=== PATIENT | female | born 1980 | race Caucasian/White ===

== ENCOUNTER 2016-07-15 20:00 | Emergency (ER) | payer OTHER ==
[2016-07-15 21:02] VITALS: BP 114/76; PULSE 74; TEMP 97.8; BMI 29.8
[2016-07-15 21:05] LABS: BASOPHIL 0.7 % (0-2.0); EOSINOPHIL 2.1 % (0-4.5); MCHC 34.7 g/dl (32.0-36.0); MEAN CELL VOLUME 83.6 fl (80-96); NEUTROPHILS 63.6 % (42.8-82.8); PLATELET COUNT 263 K/MM3 (134-434); RDW 13.4 % (11.6-15.6); WHITE BLOOD COUNT 5.4 K/mm3 (4.0-10.0)
--- NOTE | 2016-07-15 21:11 | PDOC ---
[id number] 96 07/15/16 20:55 07/15/16 20:55 07/15/16 20:55 07/15/16 20:55 07/15/16 20:55 ED Treatment Course - LABORATORY CBC & Chemistry Diagram: 07/15/16 20:45 07/15/16 20:45 - ADDITIONAL ORDERS Additional order review: 07/15/16 20:45 RBC 5.03 MCV 83.6 MCHC 34.7 RDW 13.4 D MPV 8.0 Neutrophils % 63.6 Lymphocytes % 26.4 D Monocytes % 7.2 Eosinophils % 2.1 D Basophils % 0.7 Medical Decision Making - Medical Decision Making 07/15/16 21:11 Pt seen by the Advanced Practice Provider under my direct supervision Ancillary studies reviewed I agree with plan as outlined by the Advanced Practice Provider JANAK Caldera *DC/Admit/Observation/Transfer Diagnosis at time of Disposition: Eloped - Discharge Dispostion Disposition: AGAINST MEDICAL ADVICE
[2016-07-15 21:18] LABS: URINE APPEARANCE CLEAR; URINE BILIRUBIN NEGATIVE (NEGATIVE); URINE BLOOD NEGATIVE (NEGATIVE); URINE COLOR YELLOW; URINE GLUCOSE (UA) NEGATIVE (NEGATIVE); URINE KETONE TRACE (NEGATIVE); URINE LEUK ESTERASE 1+ (NEGATIVE); URINE NITRITE NEGATIVE (NEGATIVE); URINE PROTEIN NEGATIVE (NEGATIVE); URINE UROBILINOGEN NEGATIVE E.U./dl (0.2-1.0)
[2016-07-15 21:23] LABS: URINE MUCUS RARE; URINE RBC 2 /hpf (0-3); URINE WBC 3 /hpf (3-5)
--- NOTE | 2016-07-15 21:23 | PDOC ---
History of Present Illness - General Chief Complaint: Pain, Acute Stated Complaint: PAIN Time Seen by Provider: 07/15/16 20:08 - History of Present Illness Initial Comments: 07/15/16 21:05 CHIEF COMPLAINT: abdominal pain, vomiting HISTORY OF PRESENT ILLNESS: 35 yo F with hx of hypoglycemia, s/p cholecystectomy , x 2 (2002, 2007), gastric bypass 2011, [facility] 2013, presents to ED with sudden onset abdominal pain and vomiting that began 30 minutes prior to arrival. Patient reports that she was "fine, at home doing homework with my kids, and then I made scrambled eggs and 2 minutes after I ate them I threw up 3 times and doubled over with abdominal pain. She denies any fever but does report having chills. Last BM was this morning, last LMP was 3 weeks ago. No recent travel or sick contacts. PAST MEDICAL HISTORY: as per HPI FAMILY HISTORY: Denies SOCIAL HISTORY: Denies tobacco, alcohol, illicit drug use. SURGICAL HISTORY: as per HPI ALLERGIES: codeine, oxycodone, PCN, morphine REVIEW OF SYSTEMS General/Constitutional: Denies fever or chills. Denies weakness, weight change. HEENT: Denies change in vision. Denies ear pain or discharge. Denies sore throat. Cardiovascular: Denies chest pain or shortness of breath. Respiratory: Denies cough, wheezing, or hemoptysis. Gastrointestinal: Abdominal pain and vomiting since this evening. diarrhea or constipation. Denies rectal bleeding. Genitourinary: Denies dysuria, frequency, or change in urination. Musculoskeletal: Denies joint or muscle swelling or pain. Denies neck or back pain. Skin and breasts: Denies rash or easy bruising. PHYSICAL EXAM General Appearance: Well-appearing, appropriately dressed. No apparent distress , no intoxication. HEENT: EOMI, PERRLA, normal ENT inspection, normal voice, TMs normal, pharynx normal. No conjunctival pallor. No photophobia, scleral icterus. Neck: Supple. Trachea midline. No tenderness, rigidity, carotid bruit, stridor , lymphadenopathy, or thyromegaly. Respiratory/Chest: Lungs CTAB. No shortness of breath, chest tenderness, respiratory distress, accessory muscle use. No crackles, rales, rhonchi, stridor , wheezing, dullness Cardiovascular: RRR. S1, S2. Gastrointestinal/Abdominal: Marked tenderness to epigastrum/RLQ. Positive McBurney's sign. Normal bowel sounds. Abdomen soft, non-distended. No tenderness or rebound tenderness. No organomegaly, pulsatile mass, guarding, hernia, hepatomegaly, splenomegaly. Lymphatic: No adenopathy, tenderness. Musculoskeletal/Extremities: Normal inspection. FROM of all extremities, normal capillary refill. Pelvis Stable. No CVA tenderness. No tenderness to extremities, pedal edema, swelling, erythema or deformity. Integumentary: Appropriate color, dry, warm. 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 Fully oriented, alert. Appropriate mood/affect. Motor strength 5/5. No appreciable EOM palsy, facial droop or sensory deficit. 07/15/16 21:43 Past History - Past Medical History Allergies/Adverse Reactions: Allergies Allergy/AdvReac Type Severity Reaction Status Date / Time codeine [Codeine] Allergy Verified 09/26/15 07:09 oxycodone HCl [From Percocet] Allergy Verified 09/26/15 07:09 Penicillins Allergy Verified 09/26/15 07:09 morphine AdvReac Itching Verified 09/26/15 07:09 Home Medications: Ambulatory Orders Ascorbic Acid [Vitamin C] 500 mg PO DAILY 03/03/13 Biotin 10,000 mcg PO DAILY 03/03/13 Calcium 1,000 mg PO DAILY 03/03/13 Cyanocobalamin [Vitamin B12 -] 1,000 mcg PO DAILY 03/03/13 Ferrous Sulfate [Feosol] 650 mg PO DAILY 03/03/13 Multivitamin with Minerals [Multiple Vitamin] 1 each PO DAILY 03/03/13 Thiamine HCl [Vitamin B-1] 500 mg PO DAILY 03/03/13 Vitamin A 8,000 unit PO DAILY 07/13/13 Cholecalciferol (Vitamin D3) [Vitamin D] 50,000 units PO WEEKLY 07/08/15 Tramadol HCl [Conzip] 100 mg PO PRN 07/08/15 Pantoprazole Sodium [Protonix] 40 mg PO DAILY #7 tablet. 08/24/15 Ranitidine HCl [Zantac] 150 mg PO ASDIR 09/05/15 Levofloxacin [Levaquin] 500 mg PO DAILY 09/25/15 Ondansetron HCl [Zofran] 8 mg PO DAILY 09/25/15 Anemia: Yes Asthma: No Cancer: No Cardiac Disorders: No CVA: No COPD: No CHF: No Dementia: No Diabetes: No GI Disorders: No Disorders: Yes (kidney stones) HTN: No Hypercholesterolemia: No Liver Disease: No Seizures: No Thyroid Disease: No - Surgical History Abdominal Surgery: Yes (gastric bypass 07/2011) Appendectomy: No Cardiac Surgery: No Cholecystectomy: Yes Lung Surgery: No Neurologic Surgery: No Orthopedic Surgery: No - Psycho/Social/Smoking Cessation Hx Suicidal Ideation: No Smoking Status: No Smoking History: Unknown if ever smoked Number of Cigarettes Smoked Daily: 0 Information on smoking cessation initiated: No Hx Alcohol Use: No Drug/Substance Use Hx: No Substance Use Type: None Hx Substance Use Treatment: No *Physical Exam - Vital Signs Last Vital Signs Temp Pulse Resp BP Pulse Ox 97.8 F 74 17 114/76 96 07/15/16 20:55 07/15/16 20:55 07/15/16 20:55 07/15/16 20:55 07/15/16 20:55 ED Treatment Course - LABORATORY CBC & Chemistry Diagram: 07/15/16 20:45 07/15/16 20:45 - RADIOLOGY Radiology Studies Ordered: Category Date Time Status ABDOMEN & PELVIS CT WITH CONTR [CT] Stat CT Scan 07/15/16 20:16 Ordered Medical Decision Making - Medical Decision Making 07/15/16 21:48 35 yo F with hx of hypoglycemia, s/p cholecystectomy, x 2 (2002, 2007 ), gastric bypass 2011, [facility] 2013, presents to ED with sudden onset abdominal pain and vomiting that began 30 minutes prior to arrival. -CBC, CMP, lipase -A&P CT with oral contrast Labs unremarkable. 07/16/16 06:07 FINDINGS: Negative for appendicitis. A very small normal appendix is visualized just medial to the ileocecal valve. No bowel obstruction, free air, or free fluid. Negative for diverticulitis or colitis. Normal kidneys urinary tract and urinary bladder. 1.5 cm right adnexal cyst. Normal liver. The spleen is slightly enlarged at 13.9 cm. Recommend followup. Normal pancreas. Normal adrenal glands. Abundant stool noted in the colon/constipation. Read by: Alek Garay MD Patient eloped prior to results of CT. *DC/Admit/Observation/Transfer Diagnosis at time of Disposition: Eloped - Discharge Dispostion Disposition: ELOPED
[2016-07-15 21:30] LABS: INR 1.01 (0.82-1.09); PROTHROMBIN TIME (PATIENT) 11.1 SEC (9.98-11.88)
[2016-07-15 21:38] LABS: ALBUMIN 3.8 g/dl (3.4-5.0); ANION GAP 7 (8-16); BILIRUBIN,TOTAL 0.4 mg/dL (0.2-1.0); CALCIUM 8.5 mg/dL (8.5-10.1); CO2 29 mmol/L (21-32); COCKROFT - GAULT 154.1985; CREATININE 0.6 mg/dL (0.55-1.02); GLUCOSE,RANDOM 91 mg/dL (74-106); SGOT/AST 22 U/L (15-37); SGPT/ALT 24 U/L (12-78); TOT PROT 7.3 g/dl (6.4-8.2)
[2016-07-15 21:39] LABS: ALK PHOS 78 U/L (45-117)
[2016-07-16] MEDS ORDERED: MAG HYDROX/AL HYDROX/SIMETH 30 ML UNIT-DOSE CUP PO ONE (01:25)
[2016-07-16] MEDS ORDERED: SODIUM CHLORIDE 0.9% 1000 ML INFUS.BAG IV ONE (01:25)
[2016-07-16] MEDS ORDERED: FAMOTIDINE 20 MG/50 ML IVPB 50 ML IVPB ONE (01:25)
== END 2016-07-16 02:09 | disposition left against medical advice (07) ==
LOC: JER 20:00
DX: Z53.21 Procedure and treatment not carried out due to patient leaving prior to being seen by health care provider (principal); D64.9 Anemia, unspecified; Z87.442 Personal history of urinary calculi; Z98.84 Bariatric surgery status
CPT/HCPCS: 36415; 74177-TC; 80053; 81003; 81015; 83690; 84703; 85025; 85610; 87086; 99283-25

== ENCOUNTER 2019-04-03 05:06 | Day surgery (SDC) | payer BC, OTHER ==
[2019-03-30 10:05] VITALS: BMI 28.7
[2019-04-03] MEDS ORDERED: MIDAZOLAM HCL 2 MG/2 ML SINGLE DOSE VIAL ONE (09:55)
[2019-04-03] MEDS ORDERED: PROPOFOL 20 ML ONE (09:55)
[2019-04-03] MEDS ORDERED: DEXAMETHASONE SOD PHOSPHATE 4 MG/1 ML VIAL ONE ×2 (09:56→10:53)
[2019-04-03] MEDS ORDERED: LIDOCAINE HCL/PF 2% SDV 5ML VIAL ONE (09:56)
--- NOTE | 2019-04-03 09:59 | HP ---
Past Medical History - Primary Care Physician PCP:: Sloan Pandya - Admission Chief Complaint: 38yo P2 with menometrorrhagia and hematometrium after prior endometrial ablation. History of Present Illness: Endometrial ablation 2016. Menometrorrhagia in last several months. last period was in 02/2019 and light, as per pt. 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: No: Alzheimer's, CVA, Dementia, Migraine, Multiple Sclerosis, Peripheral Neuropathy, Parkinson's, Seizure, Syncope, TIA, Vertigo, Other Cardiovascular: No: AFIB, Aneurysm, Aortic Insufficiency, Aortic Stenosis, CAD, CHF, Deep Vein Thrombosis, HTN, Hyperlipdemia, VT, Mitral Insufficiency, Mitral Stenosis, Murmur, Pulmonary Hypertension, Other Pulmonary: No: Asthma, Bronchitis, Cancer, COPD, O2 Dependent, Pneumonia, Previously Intubated, Pulmonary Embolus, Pulmonary Fibrosis, Sleep Apnea, Other Gastrointestinal: No: Ascites, Cancer, Constipation, Crohn's Disease, Diverticulitis, Diverticulosis, Esophageal Varices, Gastritis, GERD, GI Bleed, Hemorrhoids, Hiatal Hernia, Inflamatory Bowel Disease, Irritable Bowel Disease, Pancreatitis, Peptic Ulcer Disease, Ulcerative Colitis, Other Hepatobiliary: No: Cirrhosis, Cholelithiasis, Cholecystitis, Choledocholithiasis , Hepatitis A, Hepatitis B, Hepatitis C, Other Renal/: No: Renal Failure, Renal Inusuff, BPH, Cancer, Hematuria, Hemodialysis , Neurogenic Bladder, Renal Calculi, UTI, Other Reproductive: No: Ectopic , Endometriosis, Fibroids, PID, Polycystic Ovary Syndrome, Postmenopausal, Other ...: 7 ...Para: 2 ...Term: 2 ...Spon : 1 ...Induced : 4 Heme/Onc: No: Anemia, B12 Deficiency, Bleeding Disorder, Cancer, Current Chemotherapy, Current Radiation Therapy, Hemochromatosis, Hypercoaguable State, Myeloproliferative Synd, Sickle Cell Disease, Sickle Cell Trait, Thrombocytopenia, Other Infectious Disease: No: AIDS, C-Diff, Herpes Zoster, HIV, MRSA, STD's, Tuberculosis, VREF, Other Psych: No: Addictions, Anxiety, Bipolar, Depression, Panic, Psychosis, Schizophrenia, Other Musculoskeletal: No: Bursitis, Chronic low back pain, Hemiparesis, Hemiplegia, Osteoarthritis, Paraplegia, Other Rheumatology: No: Fibromyalgia, Gout, Lupus, Rheumatoid Arthritis, Sarcoidosis, Vasculitis, Other ENT: No: Allergic Rhinitis, Sinusitis, Other Endocrine: No: Muscogee's Disease, Shelly's Disease, Diabetes Insipidus, Diabetes Mellitus, Hyperparathyroidism, Hyperthyroidism, Hypothyroidism, Osteopenia, SIADH, Other Dermatology: No: Basal Cell, Cellulitis, Eczema, Melanoma, Psoriasis, Squamous Cell, Other - Past Surgical History Past Surgical History: Yes: Bariatric Surgery, Cholecystectomy, , Tonsillectomy Hx Myomectomy: No Hx Transabdominal Cerclage: No Additional Surgical History: Endometrial ablation, lithotripsy, abdominoplasty - Smoking History Smoking history: Former smoker Have you smoked in the past 12 months: No Aproximately how many cigarettes per day: 0 - Alcohol/Substance Use Hx Alcohol Use: No History of Substance Use: reports: None - Social History Usual Living Arrangement: Yes: With Child ADL: Independent History of Recent Travel: No Home Medications - Allergies Allergies/Adverse Reactions: Allergies Allergy/AdvReac Type Severity Reaction Status Date / Time codeine [Codeine] Allergy Verified 04/03/19 08:01 oxycodone HCl [From Percocet] Allergy Verified 04/03/19 08:01 Penicillins Allergy Verified 04/03/19 08:01 morphine AdvReac Itching Verified 04/03/19 08:01 - Home Medications Home Medications: Ambulatory Orders Ascorbic Acid [Vitamin C] 500 mg PO DAILY 03/03/13 Biotin 10,000 mcg PO DAILY 03/03/13 Calcium 1,000 mg PO DAILY 03/03/13 Cyanocobalamin [Vitamin B12 -] 1,000 mcg PO DAILY 03/03/13 Ferrous Sulfate [Feosol] 650 mg PO DAILY 03/03/13 Multivitamin with Minerals [Multiple Vitamin] 1 each PO DAILY 03/03/13 Thiamine HCl [Vitamin B-1] 500 mg PO DAILY 03/03/13 Vitamin A 8,000 unit PO DAILY 07/13/13 Cholecalciferol (Vitamin D3) [Vitamin D] 50,000 units PO WEEKLY 07/08/15 Family Medical History Family Hx Cancer: Grandmother (paternal) (colon ca), Grandfather (paternal) ( colon ca) Other Family History: ovarian ca (maternal aunt and cousin at age 34), colon ca (paternal uncle) Review of Systems Findings/Remarks: Well appearing - Review of Systems Constitutional: reports: No Symptoms Eyes: reports: No Symptoms HENT: reports: No Symptoms Neck: reports: No Symptoms Cardiovascular: reports: No Symptoms Respiratory: reports: No Symptoms Gastrointestinal: reports: No Symptoms Genitourinary: reports: No Symptoms Breasts: reports: No Symptoms Reported Musculoskeletal: reports: No Symptoms Integumentary: reports: No Symptoms Neurological: reports: No Symptoms Endocrine: reports: No Symptoms Hematology/Lymphatic: reports: No Symptoms Psychiatric: reports: No Symptoms Pain Intensity: 0 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 Vital Signs: Vital Signs Temperature 98.4 F 04/03/19 07:51 Pulse Rate 89 04/03/19 07:51 Respiratory Rate 16 04/03/19 07:51 Blood Pressure 108/74 04/03/19 07:51 O2 Sat by Pulse Oximetry (%) 100 04/03/19 07:51 Constitutional: Yes: Well Nourished, No Distress, Calm Eyes: Yes: WNL, Conjunctiva Clear, EOM Intact HENT: Yes: WNL, Atraumatic, Normocephalic Neck: Yes: WNL, Supple, Trachea Midline Cardiovascular: Yes: WNL, Regular Rate and Rhythm Respiratory: Yes: WNL, Regular, CTA Bilaterally Gastrointestinal: Yes: WNL, Normal Bowel Sounds, Soft ...Rectal Exam: Yes: Deferred Renal/: Yes: WNL Pelvis: Yes: WNL External Genitalia: Yes: Normal Musculoskeletal: Yes: WNL Extremities: Yes: WNL Edema: No Integumentary: Yes: WNL Neurological: Yes: WNL, Alert, Oriented ...Motor Strength: WNL Psychiatric: Yes: WNL, Alert, Oriented Imaging - Results Ultrasound: Report Reviewed Assessment/Plan 38yo P2 with menometrorrhagia and hematometrium after prior endometrial ablation. We had a long discussion about the risks, benefits, and alternatives of surgery. I explained the risks of infection, bleeding, scarring, amenorrhea, Asherman's syndrome, infertility, perforation, need for additional surgery to treat any complications, etc. The pt declined expectant management. She requested to proceed with surgery. I emphasized that all surgeries have risks and no guarantees can be provided.
[2019-04-03] MEDS ORDERED: KETOROLAC TROMETHAMINE 30 MG/1 ML VIAL ONE (10:53)
--- NOTE | 2019-04-03 11:17 | OP ---
Operative Note - Note: Operative Date: 04/03/19 Pre-Operative Diagnosis: Menometrorrhagia, hematometrium Operation: Hysteroscopy, D&C Findings: Normal pelvic exam under anesthesia. Narrow/stenotic cervical os. Blood clots ( old blood) escaping as soon as the cervical os was dilated. Normal uterine cavity with atrophic endometrium. No lesions or masses. Post-Operative Diagnosis: Same as Pre-op Surgeon: Sloan Pandya Anesthesiologist/NUTRITION EDUCATOR: Catalina South Anesthesia: General Specimens Removed: Endometrial curettings Estimated Blood Loss (mls): 5 Blood Volume Replaced (mls): 0 Fluid Volume Replaced (mls): 600 Operative Report Dictated: Yes
[2019-04-03] MEDS ORDERED: oxyCODONE HCL 5 MG TABLET PO PRN (11:31)
[2019-04-03] MEDS ORDERED: ONDANSETRON 4 MG/2 ML VIAL IVPUSH PRN (11:31)
[2019-04-03] MEDS ORDERED: LACTATED RINGERS SOLUTION 1,000 ML IV SCH (11:45)
[2019-04-03 12:38] VITALS: TEMP 97.8
[2019-04-03 13:25] VITALS: BP 124/65; PULSE 94
--- NOTE | 2019-04-04 11:32 | OP ---
DATE OF OPERATION: 04/03/2019 PREOPERATIVE DIAGNOSIS: Menometrorrhagia, hematometra. POSTOPERATIVE DIAGNOSIS: Menometrorrhagia, hematometra, stenotic cervical os. PROCEDURE: Dilation of the cervix, uterine curettage, and hysterotomy. SURGEON: Melchor Robb MD ANESTHESIOLOGIST: Catalina South MD and Nataly, nurse. PATHOLOGY: Endometrial curettings. COMPLICATIONS: None. ESTIMATED BLOOD LOSS: 5 mL. FINDINGS: Examination under anesthesia revealed a small, mobile uterus with no pelvic or adnexal masses. The cervical os appeared to be stenotic. There was no vaginal bleeding noted at the beginning of the procedure; however, as soon as the cervical os was dilated, a moderate amount of old blood began to escape from the uterine cavity. During hysteroscopy, a moderate amount of blood was washed out of the uterine cavity. The uterine cavity appeared to be within normal limits. There was no lesions noted. There was no mass noted. The endometrial lining appeared to be atrophic and thin. DESCRIPTION OF PROCEDURE: The patient was met preoperatively. Risks, benefits, and alternatives of surgery were discussed in detail. All questions answered. The patient was brought to the OR with the IV running. She was placed on the surgical table in the supine position. The general anesthesia was achieved without difficulty. The patient was then placed in a dorsal lithotomy position using adjustable Levy stirrups. She was examined under anesthesia. The uterus appeared to be small and mobile. There were no pelvic or adnexal masses noted. The vaginal examination showed a normal cervix with a stenotic cervical os. There was no active vaginal bleeding noted. The patient was then prepped and draped in the usual sterile fashion. A time-out was conducted as per standard protocol. The surgeon then proceeded with the operation. A weighted speculum was introduced inside the vagina. The cervix was grasped with a single-tooth tenaculum. The cervical os was dilated with graduated White dilators. Upon dilation of the cervical canal, old blood began to escape from the uterine cavity. The cervical os was dilated to accommodate a size 15 White dilator. A diagnostic hysteroscope was introduced gently into the uterine cavity through the endocervical canal. More of old blood was washed out from the uterine cavity using hysteroscopy. The uterine cavity appeared to be within normal limits. There were no lesions or masses noted. The endometrial lining appeared to be atrophic. The hysteroscope was then removed from the uterus. A gentle uterine curettage was then performed, and the tissue was sent to Pathology for evaluation. Once this was completed, good hemostasis was noted. All of the instruments were removed from the patient. Sponge, lap, instrument counts were correct. Once again, good hemostasis was confirmed. The patient was returned to supine position. She was transferred to recovery room in stable condition and awake. MELCHOR ROBB M.D. [id number]
--- NOTE | 2019-04-04 14:21 | PATH ---
Surgical Pathology Report Patient Name: DORITA FUENTES Med. Rec. #: [id number] /Age/Gender: 1980 (Age: 38) / F Account: [id number] Location: [facility] Taken: 04/03/2019 Received: 04/03/2019 Reported: 04/04/2019 Physicians: Sloan Pandya M.D. Specimen(s) Received ENDOMETRIAL CURETTINGS Clinical History Endometrial polyp Final Diagnosis ENDOMETRIAL CURETTINGS: PROLIFERATIVE TYPE ENDOMETRIUM WITH CHRONIC ENDOMETRITIS. SEPARATE ENDOCERVICAL TISSUE WITH SQUAMOUS METAPLASIA. Electronically Signed Winnie Ralph M.D. Gross Description Received in formalin labeled "endometrial curettings," is a 3.2 x 3.0 x 0.4 cm aggregate of montoya red soft tissue fragments. The formalin is filtered and the specimen is entirely submitted in 2 cassettes. /04/03/2019 saudi/04/03/2019
== END 2019-04-03 13:29 | disposition home or self-care (01) ==
LOC: JASU-SURG 05:06
PROVIDERS: ATTEND Obstetrics & Gynecology
PROC: 0UDB7ZX Extraction of Endometrium, Via Natural or Artificial Opening, Diagnostic (ICD-10-PCS; principal; 2019-04-03 09:30)
PROC: 0UJD8ZZ Inspection of Uterus and Cervix, Via Natural or Artificial Opening Endoscopic (ICD-10-PCS; 2019-04-03 09:30)
DX: N92.1 Excessive and frequent menstruation with irregular cycle (principal); N85.7 Hematometra
CPT/HCPCS: 84703; 88305-TC; 94760

== ENCOUNTER 2020-02-27 13:18 | Emergency (ER) | payer BC ==
[2020-02-27 13:36] VITALS: BP 114/70; PULSE 94; TEMP 97.6; BMI 22.8
== END 2020-02-27 14:47 | disposition home or self-care (01) ==
LOC: JERFT 13:18
DX: J06.9 Acute upper respiratory infection, unspecified (principal); U07.1 COVID-19; J12.89 Other viral pneumonia
CPT/HCPCS: 71045-TC-FY; 99284-25